=== PATIENT | female | born 1995 | race Two or more races ===

== ENCOUNTER 2021-12-30 05:55 | Emergency (ER) | payer OTHER ==
[~2021-12-30] VITALS: Ht 149.9 cm; Wt 95.3 kg
== END 2021-12-30 10:47 | disposition home or self-care (01) ==
LOC: ER 05:55
DX: N93.8 Other specified abnormal uterine and vaginal bleeding (principal); D64.9 Anemia, unspecified

== ENCOUNTER 2022-01-22 02:01 | Emergency (ER) | payer OTHER ==
[~2022-01-22] VITALS: Ht 149.9 cm; Wt 90.7 kg
[2022-01-22] MEDS ORDERED: FOLIC ACID20 MG (02:12)
[2022-01-22] MEDS ORDERED: IRON236 MG (02:12)
[2022-01-22] MEDS ORDERED: PEPCID40 MG PO (07:18)
[2022-01-22] MEDS ORDERED: ZOFRAN8 MG PO (07:18)
== END 2022-01-22 07:39 ==
LOC: ER 02:01
DX: K21.9 Gastro-esophageal reflux disease without esophagitis (principal); R11.10 Vomiting, unspecified; R53.1 Weakness; Z88.8 Allergy status to other drugs, medicaments and biological substances

== ENCOUNTER 2022-02-20 06:12 | Emergency (ER) | payer OTHER ==
[~2022-02-20] VITALS: Ht 149.9 cm; Wt 90.7 kg
[~2022-02-20 06:12] MED LIST: FOLIC ACID20 MG; IRON236 MG; PEPCID40 MG PO; ZOFRAN8 MG PO
== END 2022-02-20 10:13 | disposition home or self-care (01) ==
LOC: ER 06:12
DX: J06.9 Acute upper respiratory infection, unspecified (principal)